=== PATIENT | female | born 1945 | race Caucasian/White ===

== ENCOUNTER 2018-05-29 09:34 | Day surgery (SDC) | payer MEDICARE, BC ==
--- NOTE | 2018-05-29 06:33 | History and Physical - [place] ---
CHIEF COMPLAINT/HISTORY OF CHIEF COMPLAINT: This patient presents with a history of intractable lumbar radiculopathy. Due to the failure of all therapies, a spinal cord stimulator trial was conducted on 04/25/18 with 75+% pain control. Due to the failure of all conservative therapies and the success of the trial, the patient presents today for implantation of a permanent system. PAST MEDICAL HISTORY: Hypertension. PAST SURGICAL HISTORY: Lumbar spinal surgery. MEDICATIONS ON ADMISSION: List to be provided. ALLERGIES: None. FAMILY/PSYCHOSOCIAL HISTORY: Social history - Caffeine. Family history - Coronary artery disease and hypertension. SYSTEMS REVIEW: The patient is appropriate in no acute distress. The remainder of the systems review is positive for peripheral neuropathy, hypertension, esophagitis, and degenerative arthritis. PHYSICAL EXAMINATION: Height is 5'5", weight is 140. No vital signs. HEENT: Within normal limits. LUNGS: Clear. HEART: Rapid and regular. ABDOMEN: Nontender. MUSCULOSKELETAL: Examination of the musculoskeletal system shows diffuse tenderness lumbar spine adjacent to laminectomy scar. Range of motion produces pain into both legs, more left than right. There are some mild motor and sensory abnormalities consistent with an L4-L5 pattern left leg. Ambulation - No assistive device utilized. NEUROLOGIC: Cranial nerves are intact. 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 PLAN: The patient is here for implantation of a permanent spinal cord stimulator with a history of successful trial and the failure of all other therapies. The procedure will be considered outpatient, although an overnight stay will be evaluated. The potential risks, side effects and complications all carefully reviewed and discussed. JOB NUMBER: [id number] [facility]
[~2018-05-29 09:34] MED LIST: ACETAMINOPHEN 1,000 MG/100 ML BTL IV ONE; CEFAZOLIN 2 Gram 2 GM/50 ML BAG IVPB ONE; FAMOTIDINE 20MG TABLET PO ONE; MECLIZINE 25 MG TABLET PO ONE; METOCLOPRAMIDE 10 MG TABLET PO ONE
[2018-05-29] MEDS ORDERED: LIDOCAINE 1% W/EPI 1:200,000 MPF 30ML SQ ONE (09:35)
[2018-05-29] MEDS ORDERED: LIDOCAINE 2% MDV (20MG/ML) 20ML VIAL IV ONE (09:35)
[2018-05-29] MEDS ORDERED: BUPIVACAINE 0.5% W/EPI MPF 30 ML VIAL IVP ONE (09:35)
[2018-05-29] MEDS ORDERED: PROPOFOL 10 MG/ML VIAL IV ONE (09:35)
[2018-05-29] MEDS ORDERED: DIPHENHYDRAMINE HCL 50 MG/ML VIAL IVP PRN ×2 (14:44)
[2018-05-29] MEDS ORDERED: HYDROMORPHONE HCL 2 MG/ML VIAL IM PRN ×2 (14:44)
[2018-05-29] MEDS ORDERED: AL HYDROX/MAG HYDROX 30ML UD PO PRN (14:44)
[2018-05-29] MEDS ORDERED: ACETAMINOPHEN 325 MG TAB PO PRN ×2 (14:44)
[2018-05-29] MEDS ORDERED: OXYCODONE/APAP 10MG-325MG TABLET PO PRN ×2 (14:44)
[2018-05-29] MEDS ORDERED: HYDROCODONE/APAP 7.5/325MG TABLET PO PRN (14:44)
[2018-05-29] MEDS ORDERED: DIPHENHYDRAMINE HCL 25 MG CAPSULE PO PRN ×2 (14:44)
[2018-05-29] MEDS ORDERED: METOCLOPRAMIDE HCL 10 MG/2 ML VIAL IVP PRN (14:44)
[2018-05-29] MEDS ORDERED: SENNOSIDES/DOCUSATE SODIUM UD CAPSULE PO PRN ×2 (14:44)
[2018-05-29] MEDS ORDERED: TEMAZEPAM 15 MG CAPSULE PO PRN ×2 (14:44)
[2018-05-29] MEDS ORDERED: METOCLOPRAMIDE 10 MG TABLET PO PRN (14:44)
[2018-05-29] MEDS ORDERED: TRIAMTERENE 37.5/HCTZ 25 CAPSULE PO PRN (14:48)
[2018-05-29] MEDS: HYDROCODONE/APAP 7.5/325MG TABLET PO PRN ×2 (19:28→22:34)
[2018-05-29] MEDS: CEFAZOLIN 2 Gram 2 GM/50 ML BAG IVPB SCH (21:29)
[2018-05-29] MEDS ORDERED: GABAPENTIN 300 MG CAPSULE PO SCH (22:00)
[2018-05-29] MEDS ORDERED: GABAPENTIN 100 MG CAPSULE PO SCH (22:00)
[2018-05-29] MEDS ORDERED: FAMOTIDINE 20MG TABLET PO SCH (22:00)
[2018-05-29] MEDS ORDERED: AMLODIPINE BESYLATE 5MG TAB PO SCH (22:00)
[2018-05-29] MEDS ORDERED: ALPRAZOLAM 0.25 MG TABLET PO SCH (22:00)
[2018-05-29] MEDS ORDERED: ATORVASTATIN 20 MG TABLET PO SCH (22:00)
[2018-05-29] MEDS ORDERED: LISINOPRIL 20 MG TABLET PO SCH (22:00)
[2018-05-29] MEDS ORDERED: 0.9 % SODIUM CHLORIDE 10ML SYR IVP SCH (22:00)
[2018-05-29] MEDS ORDERED: SERTRALINE HCL 50 MG TABLET PO SCH (22:00)
[2018-05-30] MEDS: HYDROCODONE/APAP 7.5/325MG TABLET PO PRN ×2 (04:46→09:41)
[2018-05-30] MEDS: CEFAZOLIN 2 Gram 2 GM/50 ML BAG IVPB SCH (04:46)
[2018-05-30] MEDS ORDERED: BUPROPION HCL 150 MG TAB.SR.12H PO SCH (10:00)
--- NOTE | 2018-05-31 07:42 | Operative Note ---
DATE: 05/29/2018. PRIMARY CARE PHYSICIAN: Nini Roberts D.O. PREOPERATIVE DIAGNOSIS: 1. POSTLUMBAR LAMINECTOMY SYNDROME, ICD-10 CODE M96.1. 2. LUMBAR RADICULOPATHY, ICD-10 CODE M54.16 AND M54.17. POSTOPERATIVE DIAGNOSIS: 1. POSTLUMBAR LAMINECTOMY SYNDROME, ICD-10 CODE M96.1. 2. LUMBAR RADICULOPATHY, ICD-10 CODE M54.16 AND M54.17. PROCEDURES: 1. Fluoroscopically guided left epidural access at T11-12. Placement of spinal cord stimulator lead 1, a [employer] Infineon 16 with 16 electrodes, positioned left T7. 2. Fluoroscopically guided left epidural access at T12-L1. Placement of spinal cord stimulator lead 2, a [employer] Infineon 16 with 16 electrodes, positioned right T7. 3. Complex programming of lead 1 over 20 minutes followed by complex programming of lead 2 over 20 minutes. 4. Incision, subcutaneous dissection, and anchoring of leads 1 and 2 to the supraspinous fascia with a [employer] locking anchor. 5. Incision, subcutaneous dissection, and creation of subcutaneous pouch at the right posterior gluteal margin for placement of generator identified as a [employer] programmable rechargeable WaveWriter generator. 6. Tunnelling between lead pouches extending leads into generator pouch, each lead interfaced to the generator. 7. Placement of generator into pouch. Placement of leads into the pouch. 8. Closure of both incisions using Stratafix suture; #2-0 for the fascia and #3 -0 for the skin. Dermabond closure. 9. Complex recovery room programming of the internal generator for home use, two stimulators, for 20 minutes. SURGEON: Alexander Cali D.O. INDICATIONS: This patient presents with a history of intractable lumbar radiculopathy which is post laminectomy. Due to the failure of therapy, a stimulator trial was conducted with 75 to 85 percent pain control. Due to the failure of all other therapies and the success of the trial, the patient presents today for implantation of a permanent system. DESCRIPTION OF PROCEDURE: Intravenous lines, vital sign monitoring, and intravenous sedation. Prepped and draped. Under imaging the epidural interspaces left and right of the midline at 11-12 and 12-1 were identified and marked. The skin was infiltrated. Using two separate curved-access Epimed needles with loss of resistance the space was accessed. This was done atraumatically with no blood and no cerebrospinal fluid. At 11-12, spinal cord stimulator lead 1, a [employer] Infineon 16 with 16 electrodes, was positioned left of T7. With the access at 12-1, spinal cord stimulator lead 2, a [employer] Infineon 16 with 16 electrodes was inserted atraumatically right of the midline at T7. Complex programming of lead 1 over 20 minutes was followed by complex programming of lead 2 over 20 minutes. This ultimately resulted in complete patterns of stimulation across the back and into the legs. The patient indicated we were in all of the areas of the pain. She was then given the options to implant, continue to program, or remove. She opted to implant. The questions were repeated with the same response. The skin above and below both needles was infiltrated. An incision was made, and subcutaneous dissection was conducted to the supraspinous fascia. The needles were removed and then each lead was anchored to the supraspinous fascia with a [employer] locking anchor. Antibiotic irrigation and Bovie for hemostasis. At the right posterior gluteal margin, the site picked by the patient for the generator, a [employer] programmable, rechargeable WaveWriter generator, the skin was infiltrated. An incision was made and subcutaneous dissection was conducted to form a pouch of suitable size and depth. A tunneling tool was used to carry the leads into the generator pouch, and then each lead was interfaced to the generator. Antibiotic irrigation and Bovie for hemostasis. The generator was placed into the pouch and the leads were placed into their own pouch. Both incisions were then closed using Stratafix suture; # 2-0 for the fascia and #3-0 for the skin. Dermabond closure was then used to approximate the edges of both wounds. She was then transported to the recovery room stable with no side effects from the procedure or the sedation. When fully awake and alert in the recovery room, complex programming of the generator was performed over 20 minutes, re-establishing stimulation of pain control to all of the appropriate areas. The procedure was atraumatic. There were no issues or problems in recovery. She had full functionality of the extremities. After programming, we had complete control of her pain area. She was requesting to be discharged home. DISCHARGE INSTRUCTIONS: 1. The sites are to remain clean and dry. No showering or bathing in any way that would disrupt the dressings. Although the Dermabond will allow showering, she should not sit in water. 2. Standard medications to be resumed including the antibiotic Levaquin 500 mg once a day for 14 days. 3. The office is to contact the patient in the next 24 to 48 hours to set up a time in the next 7 to 10 days for us to evaluate the sites. Until then she is to keep her activities low and controlled and limit bend, lift, push, and pull. 4. The dressing should stay intact. Do not pull the dressing off. Should it curl, she may trim the edges, but do not remove the dressing. Should it come off, she should contact the office for replacement. 4. All other instructions were provided including numbers to contact with problems. She was then discharged. JOB NUMBER: [id number] cc: Lawrence Olivares
--- NOTE | 2018-05-31 09:59 | RADIOLOGY REPORT ---
EXAM: THORACOLUMBAR SPINE, HISTORY: POST STIMULATOR IMPLANT. TECHNIQUE: A single frontal view of the thoracolumbar spine was obtained. Comparison: None. FINDINGS: A stimulator device is present, a generator pack superimposes the right iliac wing, leads superimpose the T7 through the T9 vertebra. For additional procedural details please refer to the operative report. Multilevel degenerative findings in the lower thoracic spine and the lumbar spine. Thoracolumbar levocurvature is noted. Nonspecific calcific densities in the right and left upper abdominal quadrants. IMPRESSION: ABOVE. J[facility]BER: [id number] [facility]
== END 2018-05-30 10:00 | disposition home or self-care (01) ==
LOC: SUR 09:34 → MEDSURG 14:16 → SUR 05-30 10:00
PROVIDERS: ATTEND Pain Medicine Interventional Pain Medicine
DX: M96.1 Postlaminectomy syndrome, not elsewhere classified (principal); M54.16 Radiculopathy, lumbar region; M54.17 Radiculopathy, lumbosacral region; I10 Essential (primary) hypertension; E78.00 Pure hypercholesterolemia, unspecified; K21.9 Gastro-esophageal reflux disease without esophagitis
CPT/HCPCS: 63650; 63685; 01936; 95972; 72020; 94761; 93005; J3490; J1170; J0690 ×2; C1820; C1883